=== PATIENT | female | born 1995 | race Caucasian/White ===

== ENCOUNTER 2019-11-29 13:52 | Inpatient (IN) | payer MEDICAID ==
[~2019-11-29] VITALS: Ht 172.7 cm; Wt 55.8 kg
[~2019-11-29 13:52] MED LIST: NAPR500T6 PO; PRED10TA23 PO
[2019-11-29] MEDS ORDERED: acetaminophen 325mg tablet PO PRN ×2 (14:15)
[2019-11-29] MEDS ORDERED: magnesium hydroxide 30ml (MOM) UD suspension PO PRN (14:15)
[2019-11-29] MEDS ORDERED: hydrOXYzine 25 MG tablet PO PRN (14:15)
[2019-11-29] MEDS ORDERED: mag hydrox/Alum hydrox/simeth 30ml oral suspension PO PRN (14:15)
[2019-11-29] MEDS ORDERED: loperamide 2mg capsule PO PRN (14:15)
[2019-11-29] MEDS ORDERED: TRAM50TA2 PO (14:52)
[2019-11-29] MEDS ORDERED: CANNABIS PEG (14:52)
[2019-11-29] MEDS ORDERED: PALI9TAB4 PO (14:52)
[2019-11-29 15:41] VITALS: BP 110/56
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
[2019-11-29] MEDS: traMADol 50MG tablet PO PRN (18:40)
[2019-11-29 20:00] VITALS: BP 114/75
[2019-11-29] MEDS: PALIPERIDONE 3 MG TAB.ER.24 PO SCH (21:23)
[2019-11-29] MEDS: traZODone 50mg tablet PO PRN (21:24)
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
[2019-11-30 08:00] VITALS: BP 98/52
[2019-11-30] MEDS: traMADol 50MG tablet PO PRN (11:08)
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
[2019-11-30] MEDS ORDERED: tuberculin, purif. prot. deriv. 5 units/0.1ml ID ONE (15:40)
[2019-11-30 20:00] VITALS: BP 137/68
[2019-11-30] MEDS: PALIPERIDONE 3 MG TAB.ER.24 PO SCH (20:22)
[2019-11-30] MEDS: traZODone 50mg tablet PO PRN (20:32)
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
--- NOTE | 2019-12-01 08:05 | NUR ---
[facility] REFERRAL Completed [facility] referral and faxed to [facility] office. MIGUELITO Dobbs
[2019-12-01 08:27] VITALS: BP 96/52
[2019-12-01] MEDS: sertraline 50mg tablet PO SCH (09:05)
[2019-12-01 09:16] LABS: CHOL/HDL RATIO 1.7 (0.00-4.99); CHOLESTEROL 177 MG/DL (0-200); HDL CHOLESTEROL 107 MG/DL (35-60); LDL CHOLESTEROL 48 MG/DL (50-100); TRIGLYCERIDES 61 MG/DL (20-135)
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
[2019-12-01] MEDS: traMADol 50MG tablet PO PRN (19:03)
[2019-12-01 20:00] VITALS: BP 132/64
[2019-12-01] MEDS: traZODone 50mg tablet PO PRN (20:42)
[2019-12-01] MEDS: PALIPERIDONE 3 MG TAB.ER.24 PO SCH (20:42)
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
[2019-12-02 08:45] VITALS: BP 112/58
[2019-12-02] MEDS: sertraline 50mg tablet PO SCH (09:21)
[2019-12-02] MEDS: traMADol 50MG tablet PO PRN (09:43)
[2019-12-02] MEDS ORDERED: PALI9TAB4 PO (12:41)
[2019-12-02] MEDS ORDERED: TRAZ-251 PO (12:41)
[2019-12-02] MEDS ORDERED: SERT50TA10 PO (12:41)
--- NOTE | 2019-12-02 16:09 | NUR ---
Nursing Discharge Note: Pt discharged from [facility] at 1455 to [facility] milk wagon driver who will be taking her to [facility] of her choosing. Pt calm and cooperative and euthymic with flat affect. Pt in no acute physical or emotional distress, and has been improving since admission. Her valuables have been inventoried and returned to her. Pt understands f/u and discharge instructions and did not want nicotine replacement.
== END 2019-12-02 14:55 | disposition home or self-care (01) | DRG 776 ==
LOC: ADULT MH 13:52
PROVIDERS: ADMIT Psychiatry & Neurology Psychiatry; ATTEND Psychiatry & Neurology Psychiatry
DX: F12.280 Cannabis dependence with cannabis-induced anxiety disorder (principal); R45.851 Suicidal ideations; F43.10 Post-traumatic stress disorder, unspecified; F41.9 Anxiety disorder, unspecified; Z59.0 Homelessness; T40.7X5A Adverse effect of cannabis (derivatives), initial encounter
CPT/HCPCS: 36415; 80061; 83036; 87081; 99285

== ENCOUNTER 2020-06-01 10:13 | Emergency (ER) | payer MEDICAID ==
[~2020-06-01] VITALS: Ht 172.7 cm; Wt 63.6 kg
[~2020-06-01 10:13] MED LIST changes: -NAPR500T6 PO; +PALI9TAB4 PO; -PRED10TA23 PO; +SERT50TA10 PO; +TRAM50TA2 PO; +TRAZ-251 PO
[2020-06-01] MEDS ORDERED: normal saline 1000ML IV soln IVB ONE (10:20)
[2020-06-01] MEDS ORDERED: pantoprazole 40 MG vial IV ONE (10:20)
[2020-06-01] MEDS ORDERED: famotidine/PF 10 mg/ml inj IV ONE (10:20)
[2020-06-01] MEDS ORDERED: ondansetron/PF 4mg/2ml inj IV ONE (10:20)
[2020-06-01 10:47] LABS: BASOPHILS % (AUTO) 0.4 % (0-1); EOSINOPHILS % (AUTO) 0.3 % (0-6); HEMATOCRIT 38.3 % (35.0-45.0); HEMOGLOBIN 12.4 g/dl (12.0-16.0); LYMPHOCYTES # (AUTO) 1.4 X10'3 (1.1-4.8); MEAN CORPUSCULAR HEMOGLOBIN 26.2 PG (27.0-31.0); MEAN CORPUSCULAR HGB CONC 32.3 g/dL (33.0-36.5); MEAN CORPUSCULAR VOLUME 81.3 FL (78-98); MEAN PLATELET VOLUME 8.4 FL (7.4-10.4); MONOCYTES # (AUTO) 0.4 X10'3 (0-0.9); MONOCYTES % (AUTO) 3.2 % (2-12); NEUTROPHILS # (AUTO) 9.2 X10'3 (1.8-7.7); NEUTROPHILS % (AUTO) 83.1 % (42-75); PLATELET COUNT 405 X10'3 (140-440); RED BLOOD COUNT 4.71 X10'6 (4.20-5.60); RED CELL DISTRIBUTION WIDTH 15.3 % (11.5-14.5)
[2020-06-01] MEDS ORDERED: ketorolac tromethamine 15mg/ml inj. IV ONE (10:50)
[2020-06-01] MEDS ORDERED: haloperidol lactate 5mg/ml inj IM ONE (10:50)
[2020-06-01] MEDS ORDERED: metoclopramide 5 mg/ml inj IV ONE (10:50)
[2020-06-01 10:57] LABS: CLARITY,URINE TURBID (Clear); COLOR,URINE YELLOW (Yellow); GLUCOSE, URINE NEGATIVE (Neg); KETONES,URINE NEGATIVE (Neg); LEUKOCYTE ESTERASE ,URINE NEGATIVE (Neg); NITRITES, URINE NEGATIVE (Neg); OCCULT BLOOD,URINE MODERATE (Neg); PROTEIN,URINE NEGATIVE (Neg); UROBILINOGEN,URINE 0.2 E.U/dL (0.2-1.0)
[2020-06-01 10:58] LABS: URINE HCG NEGATIVE (NEG)
[2020-06-01 11:03] LABS: ALANINE AMINOTRANSFERASE 18 U/L (12-78); ALBUMIN 4.1 G/DL (3.4-5.0); ALKALINE PHOSPHATASE 135 IU/L (46-116); ANION GAP 14 (8-16); ASPARTATE AMINO TRANSFERASE 18 U/L (10-37); BILIRUBIN,TOTAL 0.7 MG/DL (0.1-1.0); BLOOD UREA NITROGEN 7 MG/DL (7-18); BUN/CREATININE RATIO 8.5 (6.6-38.0); CALCIUM 9.1 MG/DL (8.5-10.1); CHLORIDE 103 MMOL/L (99-107); CREATININE 0.82 MG/DL (0.40-0.90); GLUCOSE 127 MG/DL (70-104); POTASSIUM 3.3 MMOL/L (3.5-5.1); SODIUM 139 MMOL/L (135-145); TOTAL CARBON DIOXIDE 21.6 MMOL/L (24-32); TOTAL PROTEIN 8.2 G/DL (6.4-8.2); eGFR 84 ML/MIN
[2020-06-01 11:04] LABS: AMORPHOUS PHOSPHATES 4+; UA COLLECTION TYPE CLN CATCH MIDSTREAM
[2020-06-01 11:05] LABS: BACTERIA,URINE 2+ /HPF (Neg); MUCUS STRANDS MANY /LPF (Neg); SQUAMOUS EPITHELIAL CELL,UR MANY /LPF (FEW); WBC,URINE 0-4 /HPF (0-4)
--- NOTE | 2020-06-01 11:07 | NUR ---
Pt medicated as ordered with medications for nausea, vomiting and abd pain.
--- NOTE | 2020-06-01 11:07 | NUR ---
Pt ambulatory to the restroom to have a bm. Pt refused assistance in the restroom. Ambulatory with steady gait.
[2020-06-01 11:12] LABS: ETHANOL < 0.010 GM/DL (0.0-0.010)
[2020-06-01 11:13] LABS: URINE AMPHETAMINE SCREEN NEGATIVE (Neg); URINE BARBITUATE SCREEN NEGATIVE (Neg); URINE BENZODIAZEPINES SCREEN NEGATIVE (Neg); URINE CANNABINOID SCREEN POSITIVE (Neg); URINE COCAINE SCREEN NEGATIVE (Neg); URINE METHADONE SCREEN NEGATIVE (Neg); URINE OPIATE SCREEN NEGATIVE (Neg); URINE PHENCYCLIDINE SCREEN NEGATIVE (Neg)
[2020-06-01 12:21] VITALS: BP 149/86
[2020-06-01] MEDS ORDERED: ONDA4TAB6 PO (12:26)
[2020-06-01] MEDS ORDERED: POTA20TA19 PO (12:33)
== END 2020-06-01 12:40 | disposition home or self-care (01) ==
LOC: ER 10:14
DX: F12.188 Cannabis abuse with other cannabis-induced disorder (principal); K29.00 Acute gastritis without bleeding; E87.6 Hypokalemia; Z79.899 Other long term (current) drug therapy
CPT/HCPCS: 36415; 80053; 80305; 80320; 81001; 81025; 84443; 85025; 93005; 96361; 96372; 96374; 96375; 99284; C9113; J1630; J1885; J2405; J2765; J3490; J7030

== ENCOUNTER 2020-06-02 13:21 | Emergency (ER) | payer MEDICAID ==
[~2020-06-02] VITALS: Ht 172.7 cm; Wt 55.1 kg
[~2020-06-02 13:21] MED LIST changes: +ONDA4TAB6 PO; +POTA20TA19 PO
[2020-06-02 13:23] VITALS: BP 142/90
--- NOTE | 2020-06-02 14:07 | NUR ---
pt was found walking in the hallway a few times. states that her legs are cramping and walking helps the pain. informed the pt that if her legs are cramping she should not be up walking around because she could fall. pt was told this earlier and states she understands but then was found in the hallway again walking. MD Nicole aware of the pt walking around even when told this is not a good idea. pt seems alert and oriented but also not following basic suggestions.
--- NOTE | 2020-06-02 14:10 | NUR ---
call over the radio that the pt walked out of the ER. pt was in no distress last time I saw her.
== END 2020-06-02 14:10 | disposition left against medical advice (07) ==
LOC: ER 13:22
DX: M62.838 Other muscle spasm (principal); M79.662 Pain in left lower leg; M79.661 Pain in right lower leg; F12.90 Cannabis use, unspecified, uncomplicated; Z79.899 Other long term (current) drug therapy
CPT/HCPCS: 99281; 99284

== ENCOUNTER 2020-08-09 04:15 | Emergency (ER) | payer MEDICAID ==
[~2020-08-09] VITALS: Ht 172.7 cm; Wt 68.2 kg
[~2020-08-09 04:15] MED LIST changes: -POTA20TA19 PO
--- NOTE | 2020-08-09 04:38 | NUR ---
PT INITALLY ONLY REPORTED HEAD PAIN, AND NOW REPORTS NECK PAIN. C COLLAR PLACED ON PT.
--- NOTE | 2020-08-09 05:32 | NUR ---
PT SAID SHE WOULD'VE GOTTEN AWAY WITH IT EARLIER IF THE CURB WAS BETTER. 'I WOULD'VE GOTTEN AWAY WITH IT TOO IF IT WEREN'T FOR YOU MEDDLING KIDS... OR IS THAT MORE OF A BARBRA DOO THING?'
--- NOTE | 2020-08-09 07:07 | NUR ---
PT UP OUT OF BED TO DOOR WAY . OFFICER ASKED PT TO PUT HERSELF BACK IN HER ROOM AND PATIENT REPLIED " SUCK MY WILBUR " THEN PROCEEDED TO DISOBEY OFFICER AND HIS INSTRUCTION STO REMIAN IN HER ROOM . PT THEN WAS DETAINED BY OFFICER AND PUT BACK INTO HANDCUFF FOR NOT FOLLOWING DIRECTIONS . PT BEGAN YELLING AT NURSING STAFF CALLING THEM IN FOUL LANGUAGE AND BODY LANGUAGE . GIVING THE MIDDLE FINGER . AND CALLIN ANOTHER RN " DANIEL " CHARGE NURSE NOTIFIED
--- NOTE | 2020-08-09 07:20 | NUR ---
labeling strategist at bedside to draw bld ,no distress noted.police patrol officer sitting outside.will cont to monitor.
[2020-08-09 07:35] LABS: BASOPHILS % (AUTO) 0.5 % (0-1); EOSINOPHILS % (AUTO) 0.1 % (0-6); HEMATOCRIT 36.9 % (35.0-45.0); HEMOGLOBIN 12.4 g/dl (12.0-16.0); LYMPHOCYTES # (AUTO) 1.7 X10'3 (1.1-4.8); LYMPHOCYTES % (AUTO) 22.4 % (21-51); MEAN CORPUSCULAR HEMOGLOBIN 27.3 PG (27.0-31.0); MEAN CORPUSCULAR HGB CONC 33.4 g/dL (33.0-36.5); MEAN CORPUSCULAR VOLUME 81.6 FL (78-98); MONOCYTES # (AUTO) 0.2 X10'3 (0-0.9); MONOCYTES % (AUTO) 2.8 % (2-12); NEUTROPHILS # (AUTO) 5.6 X10'3 (1.8-7.7); NEUTROPHILS % (AUTO) 74.2 % (42-75); PLATELET COUNT 341 X10'3 (140-440); RED BLOOD COUNT 4.53 X10'6 (4.20-5.60); RED CELL DISTRIBUTION WIDTH 18.4 % (11.5-14.5); WHITE BLOOD COUNT 7.5 X10'3 (4.5-11.0)
[2020-08-09 07:50] LABS: HCG SERUM QL NEGATIVE
[2020-08-09 07:52] LABS: ALANINE AMINOTRANSFERASE 31 U/L (12-78); ALBUMIN 4.4 G/DL (3.4-5.0); ALBUMIN/GLOBULIN RATIO 1.1 (1.1-1.5); ALKALINE PHOSPHATASE 115 IU/L (46-116); ANION GAP 11 (8-16); ASPARTATE AMINO TRANSFERASE 19 U/L (10-37); BILIRUBIN,TOTAL 0.3 MG/DL (0.1-1.0); BLOOD UREA NITROGEN 9 MG/DL (7-18); BUN/CREATININE RATIO 13.2 (6.6-38.0); CALCIUM 8.4 MG/DL (8.5-10.1); CHLORIDE 106 MMOL/L (99-107); CREATININE 0.68 MG/DL (0.40-0.90); ETHANOL 0.188 GM/DL (0.0-0.010); GLUCOSE 107 MG/DL (70-104); POTASSIUM 3.7 MMOL/L (3.5-5.1); SODIUM 140 MMOL/L (135-145); TOTAL CARBON DIOXIDE 22.6 MMOL/L (24-32); TOTAL PROTEIN 8.4 G/DL (6.4-8.2); eGFR > 90 ML/MIN
[2020-08-09 08:02] LABS: ACETAMINOPHEN < 2.0 UG/ML (10-30)
[2020-08-09 08:40] VITALS: BP 135/85
== END 2020-08-09 08:50 ==
LOC: ER 04:16
DX: F10.129 Alcohol abuse with intoxication, unspecified (principal); R45.851 Suicidal ideations; M79.18 Myalgia, other site; F17.200 Nicotine dependence, unspecified, uncomplicated; F12.90 Cannabis use, unspecified, uncomplicated; Z98.890 Other specified postprocedural states; Z79.899 Other long term (current) drug therapy; V87.7XXA Person injured in collision between other specified motor vehicles (traffic), initial encounter; Y93.89 Activity, other specified; Y92.488 Other paved roadways as the place of occurrence of the external cause; Y99.8 Other external cause status; Y90.0 Blood alcohol level of less than 20 mg/100 ml
CPT/HCPCS: 36415; 70450; 72125; 80053; 80320; 80329; 84703; 85025; 99285

== ENCOUNTER 2022-09-11 01:51 | Inpatient (IN) | payer MEDICAID ==
[~2022-09-11] VITALS: Ht 172.7 cm; Wt 77.3 kg
[~2022-09-11 01:51] MED LIST changes: +SERT-433 PO; -SERT50TA10 PO
[2022-09-11] MEDS ORDERED: normal saline 1000ML IV soln IVB ONE (02:25)
[2022-09-11] MEDS ORDERED: pantoprazole 40 MG vial IV ONE (02:25)
[2022-09-11] MEDS ORDERED: ondansetron/PF 4mg/2ml inj IV ONE ×3 (02:25→05:15)
[2022-09-11] MEDS ORDERED: pantoprazole 40MG/NS 100ML BAG 100 ML IV ONE (02:30)
[2022-09-11] MEDS ORDERED: LORazepam 2 mg/ml vial IV ONE ×4 (02:35→05:15)
[2022-09-11 02:45] LABS: ALANINE AMINOTRANSFERASE 39 U/L (12-78); ALBUMIN 4.3 G/DL (3.4-5.0); ALBUMIN/GLOBULIN RATIO 1.1 (1.1-1.5); ALKALINE PHOSPHATASE 91 IU/L (46-116); ANION GAP 16 (8-16); ASPARTATE AMINO TRANSFERASE 33 U/L (10-37); BASOPHILS % (AUTO) 0.3 % (0-1); BLOOD UREA NITROGEN 7 MG/DL (7-18); BUN/CREATININE RATIO 8.9 (6.6-38.0); CALCIUM 9.6 MG/DL (8.5-10.1); CHLORIDE 99 MMOL/L (99-107); CREATININE 0.79 MG/DL (0.40-0.90); EOSINOPHILS % (AUTO) 0.1 % (0-6); GLUCOSE 145 MG/DL (70-104); HEMOGLOBIN 13.8 g/dl (12.0-16.0); LIPASE 92 U/L (73-393); LYMPHOCYTES # (AUTO) 1.1 X10'3 (1.1-4.8); LYMPHOCYTES % (AUTO) 9.5 % (21-51); MEAN CORPUSCULAR HEMOGLOBIN 28.6 PG (27.0-31.0); MEAN CORPUSCULAR HGB CONC 32.9 g/dL (33.0-36.5); MEAN CORPUSCULAR VOLUME 86.9 FL (78-98); MEAN PLATELET VOLUME 8.8 FL (7.4-10.4); MONOCYTES # (AUTO) 0.6 X10'3 (0-0.9); NEUTROPHILS # (AUTO) 9.9 X10'3 (1.8-7.7); NEUTROPHILS % (AUTO) 85.1 % (42-75); PLATELET COUNT 336 X10'3 (140-440); RED BLOOD COUNT 4.83 X10'6 (4.20-5.60); RED CELL DISTRIBUTION WIDTH 13.2 % (11.5-14.5); SODIUM 139 MMOL/L (135-145); TOTAL CARBON DIOXIDE 24.1 MMOL/L (24-32); TOTAL PROTEIN 8.1 G/DL (6.4-8.2); WHITE BLOOD COUNT 11.6 X10'3 (4.5-11.0); eGFR 86 ML/MIN
[2022-09-11 02:56] LABS: POTASSIUM 3.2 MMOL/L (3.5-5.1)
[2022-09-11 03:19] LABS: HCG SERUM QL NEGATIVE
[2022-09-11] MEDS ORDERED: metoclopramide 5 mg/ml inj IV ONE (03:55)
[2022-09-11 05:42] LABS: CLARITY,URINE CLEAR (Clear); COLOR,URINE YELLOW (Yellow); GLUCOSE, URINE NEGATIVE (Neg); KETONES,URINE >=80 mg/dl (Neg); LEUKOCYTE ESTERASE ,URINE NEGATIVE (Neg); NITRITES, URINE NEGATIVE (Neg); OCCULT BLOOD,URINE NEGATIVE (Neg); PH,URINE 6.5 (4.8-8.0); PROTEIN,URINE NEGATIVE (Neg); UROBILINOGEN,URINE 0.2 E.U/dL (0.2-1.0)
[2022-09-11 06:02] LABS: UA COLLECTION TYPE CLN CATCH MIDSTREAM
[2022-09-11] MEDS ORDERED: haloperidol lactate 5mg/ml inj IVH ONE (07:35)
[2022-09-11] MEDS ORDERED: proCHLORperazine 10 MG/2 ml inj IV ONE (08:15)
[2022-09-11] MEDS ORDERED: diphenhydrAMINE 50 mg/ml inj IV ONE (08:15)
[2022-09-11] MEDS ORDERED: metoclopramide 5 mg/ml inj IV PRN (09:50)
[2022-09-11] MEDS ORDERED: magnesium Cl slow-release 64mg tablet PO PRN (09:50)
[2022-09-11] MEDS ORDERED: mag hydrox/Alum hydrox/simeth 30ml oral suspension PO PRN (09:50)
[2022-09-11] MEDS ORDERED: magnesium 4gm in 100ml NS 100 ML IV PRN (09:50)
[2022-09-11] MEDS ORDERED: ondansetron 4mg rapidly disintigrating tab PO PRN (09:50)
[2022-09-11] MEDS ORDERED: potassium Cl 20 mEq SR tablet PO PRN ×2 (09:50)
[2022-09-11] MEDS ORDERED: potassium Cl 40MEQ/1/2NS 520ml 520 ML IV PRN (09:50)
[2022-09-11] MEDS ORDERED: acetaminophen 325mg tablet PO PRN ×2 (09:50)
[2022-09-11] MEDS ORDERED: magnesium hydroxide 30ml (MOM) UD suspension PO PRN (09:50)
[2022-09-11 09:54] LABS: URINE AMPHETAMINE SCREEN NEGATIVE (Neg); URINE BARBITUATE SCREEN NEGATIVE (Neg); URINE BENZODIAZEPINES SCREEN NEGATIVE (Neg); URINE CANNABINOID SCREEN POSITIVE (Neg); URINE COCAINE SCREEN NEGATIVE (Neg); URINE METHADONE SCREEN NEGATIVE (Neg); URINE OPIATE SCREEN NEGATIVE (Neg); URINE PHENCYCLIDINE SCREEN NEGATIVE (Neg)
[2022-09-11] MEDS: normal saline 1000ml 1,000 ML IV SCH ×2 (10:13→17:27)
[2022-09-11] MEDS: ondansetron/PF 4mg/2ml inj IV PRN ×2 (12:10→18:32)
--- NOTE | 2022-09-11 13:50 | NUR ---
Break RN: pt asleep. We will monitor.
[2022-09-11] MEDS ORDERED: HYDR50TA65 PO (15:34)
[2022-09-11] MEDS ORDERED: ONDA8TAB13 PO (15:34)
[2022-09-11] MEDS ORDERED: RISP3TAB63 PO (15:34)
[2022-09-11] MEDS ORDERED: hydrOXYzine 25 MG tablet PO PRN (18:10)
[2022-09-11] MEDS: LORazepam 2 mg/ml vial IV PRN (18:32)
[2022-09-11] MEDS: K and/or MAG REPLACEMENT MC SCH (20:00)
[2022-09-11] MEDS: docusate sod 100mg capsule PO SCH (20:00)
[2022-09-11] MEDS ORDERED: temazepam 15mg capsule PO PRN (21:00)
[2022-09-11] MEDS ORDERED: risperiDONE 2mg tablet PO SCH (21:00)
[2022-09-12] MEDS: normal saline 1000ml 1,000 ML IV SCH ×2 (00:12→09:34)
--- NOTE | 2022-09-12 00:45 | NUR ---
PT HAS BEEN SLEEPING FOR SEVERAL HOURS. ASUMED CARE AT 1700 09/11/22 AND PT HAS NOT HAD ONE EPISODE OF VOMITTING SINCE BEGINNING CARE
--- NOTE | 2022-09-12 01:55 | NUR ---
Arrived from ED via gurney. Alert and oriented x4. IV infiltrated to R hand will start new one. oriented to room and call light.
[2022-09-12 02:00] VITALS: BP 141/85
[2022-09-12] MEDS: ondansetron/PF 4mg/2ml inj IV PRN (03:39)
[2022-09-12] MEDS: LORazepam 2 mg/ml vial IV PRN (04:22)
[2022-09-12 06:00] VITALS: BP 97/65
--- NOTE | 2022-09-12 06:10 | NUR ---
Report to Lisbeth BARRETO.
[2022-09-12 06:48] LABS: HEMATOCRIT 35.9 % (35.0-45.0); HEMOGLOBIN 11.9 g/dl (12.0-16.0); MEAN CORPUSCULAR HEMOGLOBIN 28.6 PG (27.0-31.0); MEAN CORPUSCULAR HGB CONC 33.1 g/dL (33.0-36.5); MEAN CORPUSCULAR VOLUME 86.4 FL (78-98); MEAN PLATELET VOLUME 8.2 FL (7.4-10.4); PLATELET COUNT 269 X10'3 (140-440); RED BLOOD COUNT 4.15 X10'6 (4.20-5.60); WHITE BLOOD COUNT 7.8 X10'3 (4.5-11.0)
[2022-09-12 07:15] LABS: ALBUMIN 3.3 G/DL (3.4-5.0); ANION GAP 14 (8-16); BLOOD UREA NITROGEN 4 MG/DL (7-18); BUN/CREATININE RATIO 6.3 (6.6-38.0); CALCIUM 8.2 MG/DL (8.5-10.1); CHLORIDE 105 MMOL/L (99-107); CREATININE 0.63 MG/DL (0.40-0.90); GLUCOSE 78 MG/DL (70-104); MAGNESIUM 2.1 MG/DL (1.5-2.4); SODIUM 140 MMOL/L (135-145); TOTAL CARBON DIOXIDE 21.3 MMOL/L (24-32); eGFR > 90 ML/MIN
[2022-09-12 07:21] LABS: POTASSIUM 2.9 MMOL/L (3.5-5.1)
[2022-09-12] MEDS: K and/or MAG REPLACEMENT MC SCH (08:00)
[2022-09-12] MEDS: docusate sod 100mg capsule PO SCH (08:00)
[2022-09-12 10:00] VITALS: BP 120/65
--- NOTE | 2022-09-12 10:23 | NUR ---
Malnutrition consult: Pt admitted w/ hyperemesis r/t marijuana, has been having vomiting and diarrhea for about 1 week per EMR. Most recent scaled wt is from 2020 which was 55kg. Current wt 77kg though not scaled. Pt appears WD/WN per MD note. No edema noted and has normal muscle strength. Currently on Clear liquid diet pending PO intake. Pt does not meet minimum criteria for malnutrition at this time. Addendum: 09/12/22 at [address] Amended: Links added.
--- NOTE | 2022-09-12 13:08 | NUR ---
Pt has received 20mg K IV but is no longer tolerating IV potassium, even at lower rates of infusion due to burning of IV's vein. Pt is eating a regular diet w/o discomfort or nausea. K replacement change to PO starting with 20mEQ of KDur to complete 1st dosing of 40mEq Potassium as per protocol, for K=2.[address] Manrique agreed w/ change.
[2022-09-12] MEDS ORDERED: PANT-47 PO (15:18)
--- NOTE | 2022-09-12 15:30 | NUR ---
Pt stated she [facility] the [facility] and her boyfriend is watching her 3yo son while he naps, therefore she will call an Uber to take her home when ready. Assisted pt w/ gathering her belongings for dc'g.
== END 2022-09-12 16:47 | disposition home or self-care (01) | DRG 249 ==
LOC: ER 01:51 → ED HOLD 09:56 → SUR 3N 09-12 01:55
PROVIDERS: ADMIT Family Medicine; ATTEND Family Medicine
DX: R11.2 Nausea with vomiting, unspecified (principal); E16.2 Hypoglycemia, unspecified; E87.6 Hypokalemia; F41.9 Anxiety disorder, unspecified
CPT/HCPCS: 36415; 70450; 74176; 80048; 80053; 80305; 81003; 82948; 83690; 83735; 84703; 85025; 85027; 87081; 96365; 96375; 96376; 99285; A4620; C9113; G0378; J0780; J1200; J1630; J2060; J2405; J2765; J3480; J7030

== ENCOUNTER 2022-11-06 18:07 | Emergency (ER) | payer MEDICAID, SELFPAY ==
[~2022-11-06] VITALS: Ht 172.7 cm; Wt 81.0 kg
[~2022-11-06 18:07] MED LIST changes: +HYDR50TA65 PO; -ONDA4TAB6 PO; +ONDA8TAB13 PO; -PALI9TAB4 PO; +PANT-47 PO; +RISP3TAB63 PO; -SERT-433 PO; -TRAM50TA2 PO; -TRAZ-251 PO
[2022-11-06] MEDS ORDERED: ondansetron/PF 4mg/2ml inj IV ONE (18:25)
[2022-11-06] MEDS ORDERED: normal saline 1000ML IV soln IV ONE (18:25)
[2022-11-06 18:49] LABS: BASOPHILS % (AUTO) 0.2 % (0-1); EOSINOPHILS % (AUTO) 0 % (0-6); HEMATOCRIT 42.1 % (35.0-45.0); HEMOGLOBIN 13.7 g/dl (12.0-16.0); LYMPHOCYTES # (AUTO) 1.1 X10'3 (1.1-4.8); LYMPHOCYTES % (AUTO) 5.1 % (21-51); MEAN CORPUSCULAR HEMOGLOBIN 28.1 PG (27.0-31.0); MEAN CORPUSCULAR HGB CONC 32.5 g/dL (33.0-36.5); MEAN CORPUSCULAR VOLUME 86.6 FL (78-98); MEAN PLATELET VOLUME 7.9 FL (7.4-10.4); MONOCYTES # (AUTO) 0.7 X10'3 (0-0.9); MONOCYTES % (AUTO) 3.1 % (2-12); NEUTROPHILS # (AUTO) 19.7 X10'3 (1.8-7.7); NEUTROPHILS % (AUTO) 91.6 % (42-75); PLATELET COUNT 443 X10'3 (140-440); RED BLOOD COUNT 4.86 X10'6 (4.20-5.60); RED CELL DISTRIBUTION WIDTH 13.3 % (11.5-14.5); WHITE BLOOD COUNT 21.5 X10'3 (4.5-11.0)
[2022-11-06 18:56] LABS: APTT 24 SECONDS (22-32)
[2022-11-06 18:58] LABS: ALANINE AMINOTRANSFERASE 105 U/L (12-78); ALBUMIN 4.8 G/DL (3.4-5.0); ALBUMIN/GLOBULIN RATIO 1.1 (1.1-1.5); ALKALINE PHOSPHATASE 168 IU/L (46-116); ANION GAP 17 (8-16); ASPARTATE AMINO TRANSFERASE 40 U/L (10-37); BILIRUBIN,TOTAL 0.7 MG/DL (0.1-1.0); BLOOD UREA NITROGEN 15 MG/DL (7-18); BUN/CREATININE RATIO 14.4 (6.6-38.0); CALCIUM 9.9 MG/DL (8.5-10.1); CHLORIDE 98 MMOL/L (99-107); CREATININE 1.04 MG/DL (0.40-0.90); GLUCOSE 213 MG/DL (70-104); LIPASE 64 U/L (73-393); POTASSIUM 3.6 MMOL/L (3.5-5.1); SODIUM 138 MMOL/L (135-145); TOTAL CARBON DIOXIDE 22.8 MMOL/L (24-32); TOTAL PROTEIN 9.3 G/DL (6.4-8.2); eGFR 63 ML/MIN
[2022-11-06] MEDS ORDERED: haloperidol lactate 5mg/ml inj IM ONE (19:15)
[2022-11-06] MEDS ORDERED: diphenhydrAMINE 50 mg/ml inj IV ONE (19:15)
[2022-11-06] MEDS ORDERED: ketorolac trometh. 30mg/ml inj. IV ONE (19:15)
--- NOTE | 2022-11-06 19:15 | NUR ---
Patient sent to bathroom with urine specimen cup and given instructions on clean catch, patient returned from restroom with empty speciment cup and placed it on the counter..
[2022-11-06 20:33] LABS: HCG SERUM QL NEGATIVE
[2022-11-06 21:24] VITALS: BP 119/72
[2022-11-06] MEDS ORDERED: morphine 4 MG/ML inj SYRINge IV ONE (21:40)
[2022-11-06] MEDS ORDERED: proCHLORperazine 10 MG/2 ml inj IV ONE (21:40)
[2022-11-06] MEDS ORDERED: PROM12.574 RC (21:49)
== END 2022-11-06 22:21 | disposition home or self-care (01) ==
LOC: ER 18:08
DX: R11.2 Nausea with vomiting, unspecified (principal); R19.7 Diarrhea, unspecified; E86.0 Dehydration; R10.84 Generalized abdominal pain; D72.829 Elevated white blood cell count, unspecified; F41.9 Anxiety disorder, unspecified; F32.A Depression, unspecified; F12.90 Cannabis use, unspecified, uncomplicated; Z98.890 Other specified postprocedural states; Z72.89 Other problems related to lifestyle; Z79.899 Other long term (current) drug therapy
CPT/HCPCS: 36415; 74176; 80053; 83690; 84703; 85025; 85610; 85730; 86885; 86900; 86901; 96361; 96372; 96374; 96375; 99284; J0780; J1200; J1630; J1885; J2270; J2405; J7030

== ENCOUNTER 2022-12-05 02:29 | Emergency (ER) | payer MEDICAID ==
[~2022-12-05] VITALS: Ht 172.7 cm; Wt 81.8 kg
[~2022-12-05 02:29] MED LIST changes: +PROM12.574 RC
[2022-12-05 03:08] LABS: BASOPHILS # (AUTO) 0.1 X10'3 (0-0.2); BASOPHILS % (AUTO) 0.5 % (0-1); EOSINOPHILS % (AUTO) 0 % (0-6); HEMATOCRIT 40.4 % (35.0-45.0); LYMPHOCYTES % (AUTO) 7.2 % (21-51); MEAN CORPUSCULAR HEMOGLOBIN 27.5 PG (27.0-31.0); MEAN CORPUSCULAR HGB CONC 32.1 g/dL (33.0-36.5); MEAN CORPUSCULAR VOLUME 85.7 FL (78-98); MEAN PLATELET VOLUME 7.9 FL (7.4-10.4); MONOCYTES # (AUTO) 0.5 X10'3 (0-0.9); MONOCYTES % (AUTO) 3.7 % (2-12); NEUTROPHILS # (AUTO) 11.9 X10'3 (1.8-7.7); NEUTROPHILS % (AUTO) 88.6 % (42-75); PLATELET COUNT 342 X10'3 (140-440); RED BLOOD COUNT 4.72 X10'6 (4.20-5.60); RED CELL DISTRIBUTION WIDTH 12.9 % (11.5-14.5); WHITE BLOOD COUNT 13.4 X10'3 (4.5-11.0)
[2022-12-05 03:23] LABS: ALANINE AMINOTRANSFERASE 62 U/L (12-78); ALBUMIN 4.8 G/DL (3.4-5.0); ALBUMIN/GLOBULIN RATIO 1.1 (1.1-1.5); ALKALINE PHOSPHATASE 118 IU/L (46-116); ANION GAP 16 (8-16); ASPARTATE AMINO TRANSFERASE 25 U/L (10-37); BILIRUBIN,TOTAL 0.8 MG/DL (0.1-1.0); BLOOD UREA NITROGEN 13 MG/DL (7-18); BUN/CREATININE RATIO 14.1 (6.6-38.0); CALCIUM 9.7 MG/DL (8.5-10.1); CHLORIDE 94 MMOL/L (99-107); CREATININE 0.92 MG/DL (0.40-0.90); GLUCOSE 141 MG/DL (70-104); POTASSIUM 3.4 MMOL/L (3.5-5.1); SODIUM 132 MMOL/L (135-145); TOTAL CARBON DIOXIDE 22.4 MMOL/L (24-32); eGFR 72 ML/MIN
[2022-12-05 03:31] LABS: LIPASE 62 U/L (73-393)
[2022-12-05] MEDS ORDERED: acetaminophen 325mg tablet PO ONE (03:55)
[2022-12-05] MEDS ORDERED: normal saline 1000ML IV soln IVB ONE (03:55)
[2022-12-05] MEDS ORDERED: ondansetron/PF 4mg/2ml inj IV ONE (03:55)
[2022-12-05] MEDS ORDERED: potassium Cl 10 mEq/100mL bag IV ONE (04:30)
[2022-12-05] MEDS ORDERED: POTASSIUM BICARB 20meq eff tab 20 MEQ TABLET.EFF PO ONE (05:55)
[2022-12-05] MEDS ORDERED: ONDA4TAB12 PO (06:29)
[2022-12-05 06:32] VITALS: BP 119/54
== END 2022-12-05 06:34 | disposition home or self-care (01) ==
LOC: ER 02:30
DX: R11.2 Nausea with vomiting, unspecified (principal); R19.7 Diarrhea, unspecified; R10.13 Epigastric pain; R55 Syncope and collapse; F41.9 Anxiety disorder, unspecified; F32.9 Major depressive disorder, single episode, unspecified; F12.90 Cannabis use, unspecified, uncomplicated; Z72.89 Other problems related to lifestyle; Z98.890 Other specified postprocedural states; Z79.899 Other long term (current) drug therapy
CPT/HCPCS: 36415; 71045; 80053; 82948; 83690; 83880; 84484; 85025; 93005; 96374; 99285; J2405; J3480; J7030; 96361; 96365; 96375

== ENCOUNTER 2022-12-17 17:09 | Emergency (ER) | payer MEDICAID ==
[~2022-12-17] VITALS: Ht 172.7 cm; Wt 80.0 kg
[~2022-12-17 17:09] MED LIST changes: +ONDA4TAB12 PO
[2022-12-17] MEDS ORDERED: LORazepam 2 mg/ml vial IV ONE (17:35)
[2022-12-17] MEDS ORDERED: haloperidol lactate 5mg/ml inj IM ONE (17:35)
[2022-12-17] MEDS ORDERED: normal saline 1000ML IV soln IV ONE (17:35)
[2022-12-17] MEDS ORDERED: PROC25SU31 RC (18:10)
[2022-12-17] MEDS ORDERED: CAPS60CR6 TP (18:10)
[2022-12-17] MEDS ORDERED: ONDA4TAB12 PO (18:10)
[2022-12-17] MEDS ORDERED: POTASSIUM BICARB 20meq eff tab 20 MEQ TABLET.EFF PO ONE (18:15)
[2022-12-17 18:26] LABS: BASOPHILS % (AUTO) 0.1 % (0-1); EOSINOPHILS % (AUTO) 0 % (0-6); HEMATOCRIT 41.7 % (35.0-45.0); HEMOGLOBIN 13.8 g/dl (12.0-16.0); LYMPHOCYTES # (AUTO) 0.9 X10'3 (1.1-4.8); LYMPHOCYTES % (AUTO) 7.8 % (21-51); MEAN CORPUSCULAR HEMOGLOBIN 28.5 PG (27.0-31.0); MEAN CORPUSCULAR HGB CONC 33.2 g/dL (33.0-36.5); MEAN CORPUSCULAR VOLUME 85.7 FL (78-98); MONOCYTES # (AUTO) 0.3 X10'3 (0-0.9); MONOCYTES % (AUTO) 2.6 % (2-12); NEUTROPHILS # (AUTO) 10.6 X10'3 (1.8-7.7); NEUTROPHILS % (AUTO) 89.5 % (42-75); PLATELET COUNT 378 X10'3 (140-440); RED BLOOD COUNT 4.86 X10'6 (4.20-5.60); WHITE BLOOD COUNT 11.9 X10'3 (4.5-11.0)
[2022-12-17 18:39] LABS: ALANINE AMINOTRANSFERASE 69 U/L (12-78); ALBUMIN 4.9 G/DL (3.4-5.0); ALBUMIN/GLOBULIN RATIO 1.1 (1.1-1.5); ALKALINE PHOSPHATASE 126 IU/L (46-116); ANION GAP 11 (8-16); ASPARTATE AMINO TRANSFERASE 40 U/L (10-37); BILIRUBIN,TOTAL 0.8 MG/DL (0.1-1.0); BLOOD UREA NITROGEN 10 MG/DL (7-18); BUN/CREATININE RATIO 10.4 (6.6-38.0); CALCIUM 9.8 MG/DL (8.5-10.1); CHLORIDE 98 MMOL/L (99-107); CREATININE 0.96 MG/DL (0.40-0.90); GLUCOSE 149 MG/DL (70-104); POTASSIUM 3.7 MMOL/L (3.5-5.1); SODIUM 136 MMOL/L (135-145); TOTAL PROTEIN 9.4 G/DL (6.4-8.2); eGFR 69 ML/MIN
[2022-12-17 19:53] VITALS: BP 136/72
== END 2022-12-17 19:55 | disposition home or self-care (01) ==
LOC: ER 17:10
DX: R11.15 Cyclical vomiting syndrome unrelated to migraine (principal); F12.188 Cannabis abuse with other cannabis-induced disorder; E86.0 Dehydration; F41.9 Anxiety disorder, unspecified; F32.A Depression, unspecified; Z98.890 Other specified postprocedural states; Z79.899 Other long term (current) drug therapy
CPT/HCPCS: 36415; 80053; 82948; 85025; 96361; 96372; 96374; 99284; J1630; J2060; J7030

== ENCOUNTER 2022-12-19 09:37 | Inpatient (IN) | payer MEDICAID ==
[~2022-12-19] VITALS: Ht 172.7 cm; Wt 81.8 kg
[~2022-12-19 09:37] MED LIST changes: +CAPS60CR6 TP; +PROC25SU31 RC
[2022-12-19 10:04] LABS: BASOPHILS % (AUTO) 0.2 % (0-1); EOSINOPHILS % (AUTO) 0.1 % (0-6); HEMOGLOBIN 12.8 g/dl (12.0-16.0); LYMPHOCYTES % (AUTO) 9.5 % (21-51); MEAN CORPUSCULAR HEMOGLOBIN 28.3 PG (27.0-31.0); MEAN CORPUSCULAR HGB CONC 32.7 g/dL (33.0-36.5); MEAN CORPUSCULAR VOLUME 86.5 FL (78-98); MEAN PLATELET VOLUME 7.7 FL (7.4-10.4); MONOCYTES # (AUTO) 0.4 X10'3 (0-0.9); MONOCYTES % (AUTO) 3.3 % (2-12); NEUTROPHILS # (AUTO) 9.4 X10'3 (1.8-7.7); NEUTROPHILS % (AUTO) 86.9 % (42-75); PLATELET COUNT 337 X10'3 (140-440); RED BLOOD COUNT 4.51 X10'6 (4.20-5.60); WHITE BLOOD COUNT 10.8 X10'3 (4.5-11.0)
[2022-12-19 10:17] LABS: ALANINE AMINOTRANSFERASE 58 U/L (12-78); ALBUMIN 4.1 G/DL (3.4-5.0); ALBUMIN/GLOBULIN RATIO 1.1 (1.1-1.5); ALKALINE PHOSPHATASE 97 IU/L (46-116); ANION GAP 9 (8-16); ASPARTATE AMINO TRANSFERASE 29 U/L (10-37); BILIRUBIN,TOTAL 0.9 MG/DL (0.1-1.0); BLOOD UREA NITROGEN 8 MG/DL (7-18); BUN/CREATININE RATIO 10.3 (6.6-38.0); CALCIUM 9.2 MG/DL (8.5-10.1); CHLORIDE 103 MMOL/L (99-107); CREATININE 0.78 MG/DL (0.40-0.90); GLUCOSE 159 MG/DL (70-104); POTASSIUM 3.3 MMOL/L (3.5-5.1); SODIUM 135 MMOL/L (135-145); TOTAL CARBON DIOXIDE 22.6 MMOL/L (24-32); TOTAL PROTEIN 7.8 G/DL (6.4-8.2); eGFR 87 ML/MIN
--- NOTE | 2022-12-19 10:17 | NUR ---
Pt instructed to urinate for UA. Pt tried to urinate in the bedside commode, has not urinated yet at this time.
[2022-12-19 10:21] LABS: HCG SERUM QL NEGATIVE
[2022-12-19 10:24] LABS: MAGNESIUM 1.8 MG/DL (1.5-2.4)
[2022-12-19] MEDS ORDERED: haloperidol lactate 5mg/ml inj IVH ONE (10:33)
[2022-12-19] MEDS ORDERED: metoclopramide 5 mg/ml inj IV ONE ×2 (10:35→12:30)
[2022-12-19] MEDS ORDERED: normal saline 1000ML IV soln IVB ONE (10:35)
[2022-12-19] MEDS ORDERED: diphenhydrAMINE 50 mg/ml inj IV ONE (10:35)
[2022-12-19] MEDS ORDERED: LORazepam 2 mg/ml vial IV ONE (12:30)
[2022-12-19] MEDS ORDERED: famotidine/PF 10 mg/ml inj IV ONE (12:55)
[2022-12-19] MEDS ORDERED: ketorolac trometh. 30mg/ml inj. IV ONE (12:55)
[2022-12-19 14:40] LABS: CLARITY,URINE CLEAR (Clear); COLOR,URINE YELLOW (Yellow); GLUCOSE, URINE NEGATIVE (Neg); KETONES,URINE 40 mg/dl (Neg); LEUKOCYTE ESTERASE ,URINE NEGATIVE (Neg); NITRITES, URINE NEGATIVE (Neg); OCCULT BLOOD,URINE NEGATIVE (Neg); PH,URINE 6.5 (4.8-8.0); PROTEIN,URINE NEGATIVE (Neg); UROBILINOGEN,URINE 0.2 E.U/dL (0.2-1.0)
[2022-12-19 14:44] LABS: UA COLLECTION TYPE CLN CATCH MIDSTREAM
[2022-12-19 14:51] LABS: URINE AMPHETAMINE SCREEN NEGATIVE (Neg); URINE BARBITUATE SCREEN NEGATIVE (Neg); URINE BENZODIAZEPINES SCREEN NEGATIVE (Neg); URINE CANNABINOID SCREEN POSITIVE (Neg); URINE COCAINE SCREEN NEGATIVE (Neg); URINE METHADONE SCREEN NEGATIVE (Neg); URINE OPIATE SCREEN NEGATIVE (Neg); URINE PHENCYCLIDINE SCREEN NEGATIVE (Neg)
--- NOTE | 2022-12-19 15:30 | NUR ---
Pt had CBD oil and liquid nicotine and vape cartridge in purse. Pt had fiance come and take home as pt denies having script for CBD oil.
[2022-12-19] MEDS ORDERED: acetaminophen 325mg tablet PO PRN (15:45)
[2022-12-19] MEDS ORDERED: potassium Cl 20 mEq SR tablet PO PRN ×2 (15:45)
[2022-12-19] MEDS ORDERED: magnesium 4gm in 100ml NS 100 ML IV PRN (15:45)
[2022-12-19] MEDS ORDERED: magnesium hydroxide 30ml (MOM) UD suspension PO PRN (15:45)
[2022-12-19] MEDS ORDERED: potassium Cl 40MEQ/1/2NS 520ml 520 ML IV PRN (15:45)
[2022-12-19] MEDS: diphenhydrAMINE 50 mg/ml inj IV SCH ×2 (17:32→21:06)
[2022-12-19] MEDS: nicotine 21mg patch - 24 hr TD SCH (17:33)
[2022-12-19] MEDS ORDERED: SERT-433 PO (17:41)
--- NOTE | 2022-12-19 17:50 | NUR ---
Attempted to give report to the nurse, I was told that the room is still not cleaned and that the nurse was in another patient's room.
--- NOTE | 2022-12-19 18:55 | NUR ---
Patient in room [facility]ANVI 340. I have received report from MARY LOU Santoyo and had the opportunity to ask questions and assume patient care.
[2022-12-19 19:15] VITALS: BP 136/85
[2022-12-19] MEDS: K and/or MAG REPLACEMENT MC SCH (20:00)
[2022-12-19] MEDS ORDERED: risperiDONE 0.5mg tablet PO SCH (21:00)
[2022-12-19] MEDS: dexamethasone 4mg/ml inj IV SCH (21:06)
[2022-12-19] MEDS: metoclopramide 5 mg/ml inj IV SCH (21:06)
[2022-12-19] MEDS: famotidine/PF IV inj 40 MG in normal saline 100ml IV soln 100 ML IV SCH (21:07)
[2022-12-19] MEDS: ondansetron/PF 4mg/2ml inj IV SCH (21:07)
[2022-12-19 22:00] VITALS: BP 119/67
[2022-12-20] MEDS: ondansetron/PF 4mg/2ml inj IV SCH ×2 (02:12→08:30)
[2022-12-20] MEDS: metoclopramide 5 mg/ml inj IV SCH ×2 (02:12→08:30)
[2022-12-20] MEDS: diphenhydrAMINE 50 mg/ml inj IV SCH ×2 (02:12→08:30)
[2022-12-20] MEDS: dexamethasone 4mg/ml inj IV SCH ×2 (02:12→08:30)
[2022-12-20 06:00] VITALS: BP 127/77
--- NOTE | 2022-12-20 06:32 | NUR ---
Problems reprioritized. Patient report given, questions answered & plan of care reviewed with MARY LOU Verde.
--- NOTE | 2022-12-20 06:47 | NUR ---
Patient in room [facility]AN[facility] 340. I have received report from Hailey BARRETO and had the opportunity to ask questions and assume patient care.
[2022-12-20 07:04] LABS: ALANINE AMINOTRANSFERASE 50 U/L (12-78); ALBUMIN/GLOBULIN RATIO 1.1 (1.1-1.5); ALKALINE PHOSPHATASE 98 IU/L (46-116); ANION GAP 8 (8-16); ASPARTATE AMINO TRANSFERASE 22 U/L (10-37); BILIRUBIN,TOTAL 0.8 MG/DL (0.1-1.0); BLOOD UREA NITROGEN 7 MG/DL (7-18); BUN/CREATININE RATIO 10.4 (6.6-38.0); CALCIUM 9.1 MG/DL (8.5-10.1); CHLORIDE 105 MMOL/L (99-107); CREATININE 0.67 MG/DL (0.40-0.90); GLUCOSE 108 MG/DL (70-104); MAGNESIUM 2.1 MG/DL (1.5-2.4); POTASSIUM 3.9 MMOL/L (3.5-5.1); SODIUM 137 MMOL/L (135-145); TOTAL PROTEIN 7.7 G/DL (6.4-8.2); eGFR > 90 ML/MIN
[2022-12-20 07:15] LABS: BASOPHILS % (AUTO) 0.2 % (0-1); EOSINOPHILS % (AUTO) 0.1 % (0-6); HEMATOCRIT 38.2 % (35.0-45.0); HEMOGLOBIN 12.4 g/dl (12.0-16.0); LYMPHOCYTES # (AUTO) 0.7 X10'3 (1.1-4.8); LYMPHOCYTES % (AUTO) 8.3 % (21-51); MEAN CORPUSCULAR HGB CONC 32.4 g/dL (33.0-36.5); MEAN CORPUSCULAR VOLUME 86.6 FL (78-98); MEAN PLATELET VOLUME 8.2 FL (7.4-10.4); MONOCYTES # (AUTO) 0.1 X10'3 (0-0.9); MONOCYTES % (AUTO) 1.1 % (2-12); NEUTROPHILS # (AUTO) 7.5 X10'3 (1.8-7.7); NEUTROPHILS % (AUTO) 90.3 % (42-75); PLATELET COUNT 353 X10'3 (140-440); RED CELL DISTRIBUTION WIDTH 12.9 % (11.5-14.5); WHITE BLOOD COUNT 8.3 X10'3 (4.5-11.0)
[2022-12-20] MEDS: K and/or MAG REPLACEMENT MC SCH (08:00)
[2022-12-20] MEDS: nicotine 21mg patch - 24 hr TD SCH (08:25)
[2022-12-20] MEDS: famotidine/PF IV inj 40 MG in normal saline 100ml IV soln 100 ML IV SCH (08:30)
[2022-12-20 10:00] VITALS: BP 127/78
[2022-12-20] MEDS ORDERED: NICO-687 TD (10:46)
[2022-12-20] MEDS ORDERED: METO-292 PO (10:46)
--- NOTE | 2022-12-20 11:10 | NUR ---
Patient stable and appropriate for discharge. Patient is alert and oriented. Discharge paperwork reviewed with patient and signed. Patient verbalized understanding. All questions anticipated and addressed. Medication kept in pharmacy returned to patient. Patient assisted to lobby by auxiliary and independent into vehicle accompanied by her .
--- NOTE | 2022-12-20 12:44 | NUR ---
Problems reprioritized. Patient report given, questions answered & plan of care reviewed with GIO Maier.
--- NOTE | 2022-12-20 14:14 | NUR ---
Received order for consult. Patient discharged. Called patient and left message.
== END 2022-12-20 11:25 | disposition home or self-care (01) | DRG 249 ==
LOC: ER 09:38 → ED HOLD 15:47 → SUR 3N 19:15
PROVIDERS: ADMIT Family Medicine; ATTEND Family Medicine
DX: R11.2 Nausea with vomiting, unspecified (principal); E87.6 Hypokalemia; R11.15 Cyclical vomiting syndrome unrelated to migraine; F12.20 Cannabis dependence, uncomplicated; F17.290 Nicotine dependence, other tobacco product, uncomplicated; F32.A Depression, unspecified; F41.9 Anxiety disorder, unspecified; Z63.72 Alcoholism and drug addiction in family; Z79.899 Other long term (current) drug therapy; Z71.6 Tobacco abuse counseling; Z71.51 Drug abuse counseling and surveillance of drug abuser
CPT/HCPCS: 36415; 80053; 80305; 81003; 82948; 83735; 83880; 84484; 84703; 85025; 87081; 93005; 99285; G0378; J1100; J1200; J1885; J2060; J2405; J2765; J3490; J7030

== ENCOUNTER 2022-12-22 11:41 | Emergency (ER) | payer MEDICAID ==
[~2022-12-22] VITALS: Ht 172.7 cm; Wt 81.8 kg
[~2022-12-22 11:41] MED LIST changes: +METO-292 PO; +NICO-687 TD; -ONDA8TAB13 PO; -PROM12.574 RC; +SERT-433 PO
[2022-12-22 11:42] VITALS: BP 154/96
[2022-12-22] MEDS ORDERED: normal saline 1000ml 1,000 ML IV ONE (13:35)
[2022-12-22] MEDS ORDERED: ondansetron/PF 4mg/2ml inj IV ONE (13:35)
== END 2022-12-22 15:10 | disposition home or self-care (01) ==
LOC: ER 11:41
DX: R11.15 Cyclical vomiting syndrome unrelated to migraine (principal); F12.90 Cannabis use, unspecified, uncomplicated
CPT/HCPCS: 96361; 96374; 99283; J2405; J7030; A6446